=== PATIENT | male | born 1990 | race Caucasian/White ===

== ENCOUNTER 2020-03-11 08:33 | Day surgery (SDC) | payer OTHER ==
[~2020-03-11] VITALS: Ht 182.9 cm; Wt 112.5 kg
[~2020-03-11 08:33] MED LIST: ACET500 PO; IBUP800 PO; MELATONIN5 M1 PO; NORTRIPTYLINE H10 M1 PO; PROP10 PO
== END 2020-03-11 11:50 | disposition home or self-care (01) ==
LOC: ORSCSDS 08:33
PROVIDERS: Orthopaedic Surgery
PROC: 0SCD4ZZ Extirpation of Matter from Left Knee Joint, Percutaneous Endoscopic Approach (ICD-10-PCS; principal; 2020-03-11 10:00)
DX: M23.42 Loose body in knee, left knee (principal); M94.262 Chondromalacia, left knee; Z79.899 Other long term (current) drug therapy
CPT/HCPCS: J0171; J0690; J2250; J2405; J2704; J3010; J7120

== ENCOUNTER 2020-06-12 17:47 | Emergency (ER) | payer OTHER ==
[~2020-06-12] VITALS: Ht 182.9 cm; Wt 115.7 kg
== END 2020-06-12 18:45 | disposition home or self-care (01) ==
LOC: ER 17:47
DX: S56.911A Strain of unspecified muscles, fascia and tendons at forearm level, right arm, initial encounter (principal); Z87.891 Personal history of nicotine dependence; Z79.899 Other long term (current) drug therapy; X58.XXXA Exposure to other specified factors, initial encounter
CPT/HCPCS: 99283